=== PATIENT | male | born 2005 | race Caucasian/White ===

== ENCOUNTER 2025-05-10 14:59 | Emergency (ER) | payer BC, SELFPAY ==
[2025-05-10 15:12] VITALS: BP 144/80; PULSE 62; RESP 20; TEMP 37; O2SAT 98
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
[2025-05-10 15:36] VITALS: BP 132/80; PULSE 72; RESP 16; O2SAT 98
[2025-05-10] MEDS: Silver sulfaDIAZINE 1% 25 GM TUBE TP (15:36)
== END 2025-05-10 15:39 | disposition home or self-care (01) ==
LOC: ER 15:50
PROVIDERS: Emergency Provider Emergency Medicine
DX: T22.231A Burn of second degree of right upper arm, initial encounter (principal); V86.56XA Driver of dirt bike or motor/cross bike injured in nontraffic accident, initial encounter; X19.XXXA Contact with other heat and hot substances, initial encounter
CPT/HCPCS: 99283 ×2